=== PATIENT | male | born 1935 | race Caucasian/White ===

== ENCOUNTER 2022-01-29 10:53 | Outpatient (CLI) | payer MEDICARE, SELFPAY ==
--- NOTE | 2022-01-29 11:11 | XR_ITS ---
WS: [id number] XR chest 2V* [id number] REASON FOR EXAM: cough FINDINGS: Moderate tortuosity and ectasia of thoracic aorta. Normal heart size. Calcified granulomatous disease in both hemithoraces. No acute pulmonary parenchymal or pleural abnormality. Mild thoracic scoliosis convex left. Bridging osteophyte formation in the mid and lower thoracic spin e. XR/XR chest 2V* [id number] IMPRESSION: No acute chest abnormality.
== END 2022-01-29 10:54 | disposition home or self-care (01) ==
PROVIDERS: PCP Clinical Nurse Specialist Adult Health; Visit Provider Clinical Nurse Specialist Adult Health
DX: R05.9 Cough, unspecified (principal)
CPT/HCPCS: 71046

== ENCOUNTER → 2022-06-25 14:06 | Outpatient (BNVA) | payer BC, SELFPAY | PROVIDERS: PCP Clinical Nurse Specialist Adult Health; Visit Provider Clinical Nurse Specialist Adult Health | DX: R10.32 Left lower quadrant pain (principal) | CPT/HCPCS: 81000; 87086 ==

== ENCOUNTER 2024-12-02 11:30 | Inpatient (IN) | payer MEDICARE, SELFPAY ==
[2024-12-02] VITALS (13 sets, daily range): BP systolic 104–198; BP diastolic 49–98; PULSE 45–62; RESP 14–16; TEMP 36.6–37.1; O2SAT 94–99; BMI 22.9
--- NOTE | 2024-12-02 11:40 | ECG_ITS ---
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 Measurements Intervals [place] Rate: 60 P: 46 FL: 165 QRS: 14 QRSD: 87 T: 57 QT: 390 QTc: 390 Interpretive Statements SINUS RHYTHM POSSIBLE LEFT ATRIAL ENLARGEMENT [-0.1mV P-WAVE IN V1/V2] Compared to ECG 05/06/2014 06:11:51 Sinus bradycardia no longer present Electronically Signed On 12-02-2024 22:49:27 CDT by Candice Rosales M.D. [id number] [id number]
--- NOTE | 2024-12-02 11:56 | XR_ITS ---
WS: [id number] XR chest 1V portable [id number] REASON FOR EXAM: cp FINDINGS: Chest is unchanged compared to 01/29/2022. Calcification of the aortic arch. Moderate tortuosity and ectasia of the thoracic aorta. Normal heart size. Calcified granulomatous disease bilaterally. No acute pulmonary parenchymal or pleural abnormality. Significant degenerative spondylosis in the thoracic spine. XR/XR chest 1V portable [id number] IMPRESSION: Stable chest without acute abnormality.
[2024-12-02 12:06] LABS: Hematocrit 47.2 % (37-53); Hemoglobin 15.70 g/dL (11.27-16.99); Mean Corpuscular HGB Conc 33.3 g/dL (30-55); Mean Corpuscular Hemoglobin 31.2 pg (27-33); Mean Corpuscular Volume 93.8 fl (82-101); Nucleated Red Blood Cells % 0 %; Platelet Count 323 10^3/cmm (157-399); Red Blood Count 5.03 10^6/uL (3.85-5.65); White Blood Count 7.74 10^3/uL (3.29-11.43)
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
[2024-12-02 12:19] LABS: INR 0.89 (0.8-1.2); Prothrombin Time 12.70 SECONDS (12.1-14.9)
[2024-12-02 12:26] LABS: Alanine Aminotransferase 21 U/L (0-41); Albumin Level 4.4 g/dL (3.5-5.2); Alkaline Phosphatase 86 U/L (40-130); Anion Gap 16.3 (5-19); Blood Urea Nitrogen 11 mg/dL (8-23); Calcium 9.3 mg/dL (8.5-10.5); Carbon Dioxide 24 mmol/L (22-29); Creatinine Clr Calc Pharmacy 53.6110; Globulin 2.7 g/dL (1.3-4.6); Glucose 104 mg/dL (65-115); Lipase 49 U/L (13-60); Potassium 4.3 mmol/L (3.5-5.1); Total Protein 7.1 g/dL (6.6-8.7)
[2024-12-02 12:35] LABS: Osmolality Calculated 276 mOsm/kg (285-295); Sodium 133 mmol/L (136-145); Troponin(5th) Baseline 1112 ng/L (0-15)
[2024-12-02 12:36] LABS: Aspartate Amino Transferase 63 U/L (0-40); Chloride 97 mmol/L (98-107)
--- NOTE | 2024-12-02 12:45 | ECG_ITS ---
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 Measurements Intervals [place] Rate: 54 P: 57 [place]: 178 QRS: 3 QRSD: 96 T: 28 QT: 425 QTc: 403 Interpretive Statements SINUS BRADYCARDIA Compared to ECG 12/02/2024 12:39:56 No significant changes Electronically Signed On 12-02-2024 22:52:49 CDT by Candice Rosales M.D. [email or web address] [id number]
[2024-12-02] MEDS: heparin 5,000 unit/mL INJ 1 mL 4000 UNIT IVP (13:02)
--- NOTE | 2024-12-02 13:51 | USCV_ITS ---
Marcio Calvo Age: 88 Gender: M : 1935 Exam Date: 12/02/2024 14:27 Ordering Phys: Ping Sanders NP Technologist: Exam [place] [facility] [place]ication: chest pain sob BP: 173 / 98 HR: 50 Rhythm: Sinus Technical Quality: Adequate MEASUREMENTS (Male / Female) Normal Values 2D ECHO LV Diastolic Diameter PLAX 4.0 cm 4.2 - 5.9 / 3.9 - 5.3 cm IVS Diastolic Thickness 1.1 cm 0.6 - 1.0 / 0.6 - 0.9 cm IVS Systolic Thickness 1.5 cm LVPW Diastolic Thickness 1.2 cm 0.6 - 1.0 / 0.6 - 0.9 cm LVPW Systolic Thickness 1.5 cm LVOT Diameter 2.0 cm LV Ejection Fraction 2D Teich 67.4 % LV Ejection Fraction MOD 4C 64.5 % LV Ejection Fraction MOD 2C 59.2 % LV Ejection Fraction 2C AL 58.7 % LA Diameter 3.7 cm RA Systolic Volume 4C AL 38.3 ml RA Systolic Volume 4C MOD 37.1 ml Aorta at Sinotubular Diameter 3.3 cm M-MODE LA Ao Ratio MM 1.1 AV Cusp Separation MM 2.5 cm DOPPLER AV Peak Velocity 191.2 cm/s LVOT Peak Velocity 97.0 cm/s AV Area Cont Eq vti 2.4 cm squared AV Area Cont Eq pk 1.7 cm squared MV Peak Velocity 120.0 cm/s MV Area PHT 2.2 cm squared Mitral E to A Ratio 0.6 TV Peak Velocity 139.5 cm/s TR Peak Velocity 155.0 cm/s TR Peak Gradient 9.6 mmHg TV Peak E Velocity 79.0 cm/s PV Peak Velocity 127.0 cm/s FINDINGS Left Ventricle Normal left ventricular size, systolic function and wall thickness, with no regional wall motion abnormalities. Left ventricular ejection fraction is estimated at 60 %. Grade I/IV diastolic dysfunction (abnormal relaxation filling pattern), normal to mildly elevated filling pressures. Right Ventricle The right ventricle is normal in size and function. Right Atrium The right atrium is normal in size. Left Atrium The left atrium is normal in size. Mitral Valve Structurally normal mitral valve without significant stenosis or prolapse. There is no mitral regurgitation. Aortic Valve Moderate aortic valve calcification. Gcot-[id number]-dvsomfyp aortic valve regurgitation. Mild aortic valve stenosis, mean gradient 3.7 mmHg, TONYA 2.4 cm squared. Tricuspid Valve Structurally normal tricuspid valve without significant stenosis or regurgitation. Pulmonary artery systolic pressure is normal. Pulmonic Valve Structurally normal pulmonic valve without significant stenosis. There is no pulmonic regurgitation. Pericardium Normal pericardium without effusion. Aorta Normal ascending aorta dimension. IVC The inferior vena cava appears normal. CONCLUSIONS Normal left ventricular size, systolic function and wall thickness, with no regional wall motion abnormalities. Left ventricular ejection fraction is estimated at 60 %. Grade I/IV diastolic dysfunction (abnormal relaxation filling pattern), normal to mildly elevated filling pressures. Moderate aortic valve calcification. Phqo-kh-yutttubd aortic valve regurgitation. Mild aortic valve stenosis, mean gradient 3.7 mmHg, TONYA 2.4 cm squared. There is no pericardial effusion. Right atrial pressure is around 5 mm of mercury. Red Walsh MD (Electronically Signed) Final Date: 02 December 2024 18:28 S
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
[2024-12-02 14:18] LABS: Partial Thromboplastin Time 24.2 SECONDS (23.9-36.7)
[2024-12-02] MEDS: heparin drip 25,000 UNIT/500 ML PREMIX 20 UNIT IV (14:25)
[2024-12-02] MEDS: nitroglycerin drip 50 MG/250 ML PREMIX IV (14:26)
[2024-12-02 14:32] LABS: Troponin 5 2HR Delta -221.8 ABS# (0-10)
[2024-12-02 14:33] LABS: Troponin 5 2HR 890.2 ng/L (0-15)
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
--- NOTE | 2024-12-02 17:56 | ECG_ITS ---
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 Measurements Intervals [place] Rate: 53 P: 78 MT: 188 QRS: 15 QRSD: 88 T: 51 QT: 434 QTc: 411 Interpretive Statements SINUS BRADYCARDIA Compared to ECG 12/02/2024 11:40:24 Sinus rhythm no longer present Electronically Signed On 12-02-2024 22:52:52 CDT by Candice Rosales M.D. [email or web address]
[2024-12-02 18:38] LABS: Troponin 5 6HR 1006 ng/L (0-15); Troponin 5 6HR Delta -106 ng/L (0-12)
[2024-12-02 21:42] LABS: INR 1.00 (0.8-1.2); Prothrombin Time 13.90 SECONDS (12.1-14.9)
[2024-12-02 21:53] LABS: Partial Thromboplastin Time 114.0 SECONDS (23.9-36.7)
[2024-12-03] VITALS (22 sets, daily range): BP systolic 125–159; BP diastolic 59–88; PULSE 42–69; RESP 12–22; TEMP 36.6–36.9; O2SAT 93–99
[2024-12-03 02:32] LABS: Hematocrit 39.4 % (37-53); Hemoglobin 13.10 g/dL (11.27-16.99); Mean Corpuscular HGB Conc 33.2 g/dL (30-55); Mean Corpuscular Hemoglobin 31.0 pg (27-33); Mean Corpuscular Volume 93.1 fl (82-101); Nucleated Red Blood Cells % 0 %; Platelet Count 270 10^3/cmm (157-399); Red Blood Count 4.23 10^6/uL (3.85-5.65); White Blood Count 6.17 10^3/uL (3.29-11.43)
[2024-12-03 02:49] LABS: Anion Gap 12.1 (5-19); Blood Urea Nitrogen 11 mg/dL (8-23); Calcium 8.5 mg/dL (8.5-10.5); Carbon Dioxide 25 mmol/L (22-29); Chloride 103 mmol/L (98-107); Creatinine Clr Calc Pharmacy 53.1301; Glucose 103 mg/dL (65-115); Osmolality Calculated 282 mOsm/kg (285-295); Potassium 4.1 mmol/L (3.5-5.1); Sodium 136 mmol/L (136-145)
[2024-12-03 02:54] LABS: Partial Thromboplastin Time 96.9 SECONDS (23.9-36.7)
[2024-12-03 03:12] LABS: Estmated Average Glucose 111; Hemoglobin A1C 5.5 % (4.0-6.0)
[2024-12-03 03:19] LABS: Cholesterol 168 mg/dL (0-200); HDL Cholesterol 51 mg/dL (60-100); Magnesium 1.7 mg/dL (1.7-2.3); Thyroid Stimulating Hormone 2.55 uIU/mL (0.27-4.20); Triglycerides 81 mg/dL (0-150)
--- NOTE | 2024-12-03 06:39 | XACV_ITS ---
Exam Room: [facility] Ht: 178 cm Wt: 68 kg BSA: 1.84 m2 Gender: Male : 1935 Any Known Allergies: No known allergies Exam Priority: Routine Indication(s): - Non-ST elevation DC Procedure(s): Procedure Description: Diagnostic procedure Procedure Description: PCI procedure Procedure Description: Drug Eluting Coronary Stent Procedure Description: PTCA Procedure Description: Miscellaneous Procedure Description: ACT Procedure Description: Coronary Angiography Diagnostic Cath Status: Urgent Diagnostic Findings * Left Main has no disease. * Right Coronary Artery has no disease. It is a nondominant vessel. * Proximal Left Anterior Descending to Mid Left Anterior Descending: minimal 30% stenosis, NILDA: 3 flow. * Mid Circumflex: significant 80% stenosis, NILDA: 3 flow. * First Obtuse Marginal Branch Segment: severe 90% stenosis, NILDA: 3 flow. It is a culprit lesion which is ulcerated and ruptured plaque. * Coronary angiography shows left dominance. PCI Status: Urgent Interventional Findings * Mid Circumflex: 80% stenosis treated with a AB TREK 3.00X12 RX BALLOON, CYNDIE Brock CHAPARRO 3.5X12 JACKIE, and MDT DESI EUPHORA RX [id number] BALLOON. 0% residual stenosis, NILDA: 3 flow. * First Obtuse Marginal Branch Segment: 90% stenosis treated with a AB TREK 3.00X12 RX BALLOON, MDRosetta Brock CHAPARRO 3.0X15 JACKIE, and MDT DESI EUPHVALERIA RX [id number] BALLOON. 0% residual stenosis, NILDA: 3 flow. Conclusions 1. There is significant coronary artery disease with two vessel disease. 2. Mid Circumflex was treated with a Balloon, Drug Eluting Stent, and Balloon. 3. First Obtuse Marginal Branch Segment was treated with a Balloon, Drug Eluting Stent, and Balloon. 4. Please note that patient is a Jewish, patient was not cooperative on the table as he was moving around plus he has a torturous subclavian vessel we therefore has not performed left ventriculography.. Recommendations * 1-Return to inpatient for close monitoring and routine cath care 2-Risk factor modification for secondary prevention 3-Statin and aspirin 81 mg life-long, if tolerated 4-Patient was pre-loaded with 600 mg of Plavix, continue Plavix 75mg p.o. daily for at least one year. We will assess at the end of one year again to continue if further or not 5-Continue optimal medical management 6-Follow up with Dr. Walsh in four weeks and your primary care in 10 days. Diagnostic RX Recommendation: PCI w/o planned CABG Pressures Phase:Rest AO : / ( 0 ) @ 8:24:00 AM 122 / 67 ( 88 ) @ 8:30:00 AM 128 / 54 ( 80 ) @ 8:38:00 AM 107 / 72 ( 90 ) @ 8:43:00 AM 105 / 59 ( 82 ) @ 8:44:00 AM 129 / 66 ( 93 ) @ 8:51:00 AM 123 / 82 ( 101 ) @ 8:55:00 AM 105 / 100 ( 102 ) @ 9:00:00 AM Clinical Evaluation EBL: 5mL-10mL Procedural Details Procedure Consent Obtained. Admit Source: In Patient. Current Diagnosis : NSTEMI. Pre-Procedure Time Out. Identified patient by full name and date of as verbalized by the patient/guarantor. Does the consent match the physician's order: Yes. Accurate & Complete Informed Consent: Yes. Inpatient/Outpatient History & Physical on Chart: Yes. If H&P is completed, is and addenduem needed: No; If yes, is the addendum complete: N/A. Visualize and Verify Site with Patient/Guarantor: N/A. Relevant Radiology Images available: N/A. The risks, benefits, and alternatives of sedation and/or procedure were discussed by physician. The patient agrees to continue. Procedure started. [facility] Clinical Fraility Score: 4: Vulnerable. [employer] Chief Indications: Other. Chest Pain Symptom Assessment: Typical Angina Symptoms. Cardiovascular Instability: No. Correct patient, site and procedure confirmed by cath team. Current diagnosis: NSTEMI. PERRLA. Strong, equal hand maintenance manager bilaterally. Lungs clear x 5 lobes. IV Site on Arrival: 20 gauge in the right forearm. IV Fluids: 0.9% NaCl at KVO. 100 mL infused prior to bolt labeler. Pre Procedural Pulses: bilateral posterior tibial was Doppled. Pre Procedural Pulses: bilateral dorsalis pedis was Doppled. Pre Procedural Pulses: bilateral radial was 3+. Oxygen started at 3liters/min via nasal canula. right groin was prepped with chloroprep then draped in the usual sterile fashion. right radial was prepped with chloroprep then draped in the usual sterile fashion. Baseline sample Acquired. HR: 55 BPM. Physician notified. Physician arrived. Patient's family unavailable. Physician scrubbed in. Immediate Pre-Procedure Time Out. Correct Patient: Yes; Correct Procedure: Yes; Correct Site: Yes; Correct Patient Position: Yes; Correct Supplies: Yes; Dried Flammable Prep: Yes; Blood Products Available: N/A;. Baseline sample Acquired. HR: 57 BPM. Lidocaine 1% infiltrated to the right radial. Arterial access obtained. Heparin gtt off just prior to arrival in bolt labeler. ACT drawn. Results 140 seconds. Therapeutic limits - pre-heparin administration 90-150 seconds and monitoring heparin during a vascular procedure >250 seconds. A 5 moldovan TIG catheter in over wire. Exchange wire removed. Glidewire inserted. Catheter advanced into position. Glidewire out. Multiple views taken of left coronary artery. Catheter redirected to the RCA. Multiple views taken of right coronary artery. Catheter removed over the wire. 6 moldovan XB 3.5 guide catheter was inserted over the wire. Unable to seat guide in the lcs. Guide catheter out over the exchange wire. 6 moldovan XB 3 guide catheter was inserted over the wire. Guide seated in the LCS. Runthrough guidewire was advanced through the guide catheter to lesion in the OM. Inflation number : 1 A AB TREK 3.00X12 RX BALLOON was prepped and advanced across the 1st Ob Cony , then inflated to 8 KEVIN for 0:10 seconds. Guidewire advanced across lesion. Inflation number: 2 The AB TREK 3.00X12 RX BALLOON was reinflated across the 1st Ob Cony, to 12 KEVIN for 0:08 seconds. Balloon out. Results checked. Inflation Number : 3 A MDT R CHAPARRO 3.0X15 JACKIE -Lot Number# [id number] EXP 05/29/2027 was prepped and advanced across the 1st Ob Cony. The stent was deployed at 12 KEVIN for 0:14 seconds. Results checked. Stent balloon out over wire. Inflation number : 4 A MDT NC EUPHORA RX [id number] BALLOON was prepped and advanced across the 1st Ob Cony , then inflated to 12 KEVIN for 0:14 seconds. Inflation number: 5 The MDT NC EUPHORA RX 3.02E33MW BALLOON was reinflated across the 1st Ob Cony, to 12 KEVIN for 0:11 seconds. ACT drawn. Results Out of range HI seconds. Therapeutic limits - pre-heparin administration 90-150 seconds and monitoring heparin during a vascular procedure >250 seconds. Balloon out. Results checked. Wire redirected down the circumflex. Inflation number: 1 The AB TREK 3.00X12 RX BALLOON was reinflated across the Mid CX, to 12 KEVIN for 0:09 seconds. Balloon out. Results checked. Inflation Number : 2 A MDT R CHAPARRO 3.5X12 JACKIE -Lot Number# [id number] EXP 06/28/2027 was prepped and advanced across the Mid CX. The stent was deployed at 12 KEVIN for 0:15 seconds. Stent balloon out over wire. Results checked. Inflation number: 3 The MDT NC EUPHORA RX 3.81A25IJ BALLOON was reinflated across the Mid CX, to 16 KEVIN for 0:15 seconds. Results checked. Guide became disenguaged. Wire and balloon came out with guide disenguament. Guide seated in the LCS. ACT drawn. Results 277 seconds. Therapeutic limits - pre-heparin administration 90-150 seconds and monitoring heparin during a vascular procedure >250 seconds. Results checked. Physician review of films. [id number]. Physician scrubbed out. Post-op diagnosis: NONSTEMI; MID CIRC AND OM STENOSIS; 2 JACKIE. Complications: None. A TR Band was successful obtaining hemostatsis at the Right Radial artery insertion site. TR band placed. Hemostasis obtained. Post Procedure: Pulses reassessed and unchanged. PERRLA. Strong, equal hand maintenance manager bilaterally. No VTE prophylaxis required. Medication's Wasted: Lidocaine 1% = 18 ml , Versed = 1 mg , Nitro = 49.8 mg , Fentanyl = 50 mcg. Total IV fluids: 65 mL. Fluoro: 13:08. Contrast type used: Omnipaque 300 mg/mL, 150 mL bottle. Estimated blood loss: 5mL-10mL. Responsiveness - Normal response to verbal stimuli; alert and oriented, PERRLA. Airway - Unaffected, no intervention required; spontaneous ventilation. Circulation: W/N/L, pulses unchanged. Nausea/Vomiting: No. Procedure completed. Patient transferred by bed to 1st floor. Vital chart was stopped. Access Site Site: Right Radial artery Sheath Size: 6 Fr Hemostasis Method: TR Band Hemostasis Success: Successful Procedure Medications Start: 7:14 AM Stop: 7:14 AM Medication: Versed 1 mg and Fentanyl 25 mcg Amount: 1 Route: I.V. Start: 7:20 AM Stop: 7:20 AM Medication: Nitrogylcerin Amount: 200 mcg Route: I.A. Start: 7:28 AM Stop: 7:28 AM Medication: Heparin Amount: 6000 units Route: I.V. Start: 7:38 AM Stop: 7:38 AM Medication: Versed Amount: 1 mg Route: I.V. Start: 7:49 AM Stop: 7:49 AM Medication: Fentanyl Amount: 25 mcg Route: I.V. Start: 7:52 AM Stop: 7:52 AM Medication: Versed Amount: 1 mg Route: I.V. I, the attending physician, have reviewed and verified all procedure medications. Yes, all medications given per verbal order History/Risk Factors Hypertension: Yes Dyslipidemia: No Peripheral Arterial Disease (PAD): No Myocardial Infarction (DC): No Obesity: No Renal Disease: No Tobacco Use: Never Prior Interventions PCI: No CABG: No Valve Surgery: No Report Signatures Finalized by Red Walsh MD on 12/03/2024 08:23 AM
--- NOTE | 2024-12-03 07:10 | W.PM.OPSUD ---
Surgery/Procedure H&P Update DATE OF PROCEDURE: December 03, 2024 DATE H&P PERFORMED: 12/02/24 H&P UPDATE INFORMATION: I have reviewed H&P completed within last 30 days, I have examined patient prior to procedure and No changes to prior documentation PREOP DIAGNOSIS: [id number] myocardial infarction PLANNED PROCEDURE: Operation Date: 12/03/24 07:00 Proposed Procedures p Cardiac Catheterization(Left) - Red Walsh MD PATIENT REASSESSED PRIOR TO SEDATION, WITH NO CHANGE NOTED: Yes PHYSICAL EXAM: alert, oriented x 3, clear to auscultation bilaterally, regular rate & rhythm and operative site marked AIRWAY EVAL/ANESTHESIA PLAN: ASA II, Risks, benefits & alternatives of sedation and/or procedure discussed and Patient agrees to continue as planned ADDITIONAL INFORMATION: All risk-benefit and alternative for the procedure has been explained to the patient. Patient understand 4 to 5% risk of stroke major bleed, patient understand 6 to 10% risk of contrast-induced nephropathy, minor bleeding bruising infection hematoma pseudoaneurysm retroperitoneal bleed urgent emergent vascular or bypass surgery. Patient clearly understood and would like to proceed with it.
--- NOTE | 2024-12-03 07:10 | PC.NURSE ---
Patient taken to blood bank laboratory technician via bed. Daughter at bedside.
--- NOTE | 2024-12-03 07:14 | PC.NURSE ---
Daughter brought in Ipad for patient along with chargers to phone and Ipad. Daughter took wallet home.
--- NOTE | 2024-12-03 08:23 | PC.NURSE ---
Patient received from cath via bed s/p [facility] with PCI and TR band in place to right wrist. No s/s of bleeding or hematoma formation observed. Patient is sedated at this time. Daughter at bedside. Instruction provided regarding site care with restrictions to daughter. She verbalized and demonstrated understanding.
--- NOTE | 2024-12-03 10:36 | P.PN_ITS ---
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 Doing well overall. Currently off of his nitro drip. He is still recovering from sedation. Blood pressures little bit on the higher side 152/72. He complained of mild chest pain post procedure. We are giving him nitro. EKG showed no acute ST or T wave abnormalities. Vitals/I&O/Wt Last Vital Signs Temp 98.5 F 12/03/24 04:00 Pulse 67 12/03/24 10:34 Resp 21 H 12/03/24 10:34 BP 152/72 12/03/24 10:34 Pulse Ox 96 12/03/24 10:34 O2 Del Method Nasal Cannula 12/03/24 08: O2 Flow Rate 2 12/03/24 08:25 12/02/24 12/03/24 12/03/24 22:59 06:59 14:59 Intake Total 408.375 / 408.375 98.133 / 506.508 207.933 / 207.933 Output Total 400 / 400 800 / 1200 400 / 400 Balance 8.375 / 8.375 -701.867 / -693.492 -192.067 / -192.067 Weight last 48 hrs Weight 151 lb Weight 156 lb 6.4 oz Weight 160 lb Physical Exam 2 Narrative: General: No apparent distress HENMT: normoceophalic Neuro: PERRL, pupil size normal, charm filter operator helper strength equal bilaterally, lower extremities strength equal, no s/s of stroke, no slurred speech, no facial drooping Muskuloskeletal: Full ROM Respiratory: Normal respiratory effort, clear to auscultation bilaterally throughout all lung stewart, no use of accessory muscles Cardio: No JVD, regular rate, regular rhythm, S1 S2 normal, no murmurs, peripheral pulses 2+ radial palpated bilaterally Extremities: Full ROM, normal, normal capillary refill, no cyanosis or edema Neuro: Alert and oriented x4 Psych: Affect normal, mental status grossly normal Skin: No rashes or lesions noted, no wounds Data 12/03/24 02:20 12/03/24 02:20 A&P Assessment and plan 1. Non-ST elevation HI (NSTEMI): 2. Chest pain, unspecified type: 3. Essential hypertension: Plan: Patient s/p stent to the circ and OM. Nitro resolved chest pain. Will start amlodipine 5 mg tonight. Monitor for worseing s/s of chest discomfort. Continue aspirin and plavix as well as statin. Possibly go home tomorrow if patient does well. PDMP PDMP Reviewed: Not Reviewed Attestations 2 Medical Necessity Statement*: Deferred to primary. Coding Level of Care Code Acute Code for g Fwd Diagnoses Non-ST elevation HI (NSTEMI) I21.4 Chest pain, unspecified type R07.9 Chest pain type: unspecified Essential hypertension I10
--- NOTE | 2024-12-03 10:42 | ECG_ITS ---
[facility]: [facility] Pat Name: Marcio Calvo Department: Room: 103 Gender: Male Wiper Blender: : 1935 Requested By: Red Walsh Order Number: [id number] Luan MD: Candice Rosales M.D. Measurements Intervals [place] Rate: 67 P: 43 ND: 168 QRS: -9 QRSD: 87 T: 88 QT: 411 QTc: 434 Interpretive Statements SINUS RHYTHM NONSPECIFIC ST & T-WAVE ABNORMALITY Compared to ECG 12/02/2024 12:45:46 T-wave abnormality now present Sinus bradycardia no longer present Electronically Signed On 12-04-2024 13:52:44 CDT by Candice Rosales M.D. [email or web address]
--- NOTE | 2024-12-03 10:56 | PC.NURSE ---
Patient c/o chest pain 10/06. Dr Walsh was into see patient and is aware. One sublingual nitro given with relief. EKG obtained and transmitted. Ping Sanders NP is in at this time to see patient. Education provided regarding post LHC expectations. Patient and daughter both verbalized complete understanding.
--- NOTE | 2024-12-03 11:00 | PC.NURSE ---
Losartan discontinued per Ping Sanders NP.
--- NOTE | 2024-12-03 11:30 | PC.NURSE ---
TR band off at this time. Initiated air removal from TR Band at 1000. Removed 1-2ml of air every 15-20min until all air removed. Band off at this time. No s/s of bleeding or hematoma formation observed. Patient has slight flesh displacement proximal to the TR band area. Area is soft and without pain. Instructed patient on site care with restrictions. Patient and family verbalized complete understanding.
--- NOTE | 2024-12-03 19:55 | P.PN_ITS ---
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 Doing well overall. No acute concerns endorsed by the patient. Vitals/I&O/Wt Last Vital Signs Temp 97.8 F 12/03/24 19:32 Pulse 68 12/03/24 19:32 Resp 22 H 12/03/24 19:32 BP 147/69 12/03/24 19:32 Pulse Ox 93 12/03/24 19:32 O2 Del Method Room Air 12/03/24 19:32 O2 Flow Rate 2 12/03/24 08:25 12/03/24 12/03/24 12/03/24 06:59 14:59 22:59 Intake Total 98.133 / 506.508 447.933 / 922.758 3692 / 1567.933 Output Total 800 / 1200 950 / 950 Balance -701.867 / -693.492 -502.067 / -436.702 9930 / 617.933 Weight last 48 hrs Weight 68.492 kg Weight 70.942 kg Weight 72.575 kg Physical Exam 2 Narrative: General: Alert oriented x3, patient seen lying comfortably on the bed without any distress HEENT: Normocephalic, atraumatic, EOMI, breathing normally at room air Cardio: Regular rate rhythm, normal S1-S2, no murmurs rubs gallops, JVD normal Respiratory: Good bilateral air entry, no wheezes no rhonchi appreciated GI: Abdomen soft, nontender, nondistended, normoactive bowel sounds present all 4 quadrants, Neuro: Cranial nerves II to XII intact, strength 5/5, sensation 5/5, no gross neurological deficit Behavior: Appropriate and cooperative Extremities: Right radial access was approach for PCI and currently covered with pressure dressing Skin: Visible skin intact, no rashes Data 12/03/24 02:20 12/03/24 02:20 A&P Assessment and plan 1. Non-ST elevation [place] (NSTEMI): 2. Essential hypertension: Plan: An 88-year-old gentleman with past medical history of hypertension presented with chest pain and found to have markedly increased troponins around 1112. And admitted as a case of NSTEMI. plan: - Patient s/p PCI stenting to circumflex and OM. -As per cardiology to start amlodipine 5 mg tonight - Continue aspirin and Plavix with statins - Monitor for any complication post PCI and stable for discharge tomorrow - Telemetry monitoring Patient has been counseled about his acute current condition and illness, he understands the plan without any language barrier or concerns inquiries has been addressed I have discussed patient's end-of-life/goals of life and patient preferred to be DNR The patient is also a [employer] therefore no blood transfusion to be given to patient PDMP PDMP Reviewed: Not Reviewed Attestations 2 Medical Necessity Statement*: The patient will stay overnight for further optimization Time Spent in Patient Care: 45 minutes Coding Level of Care Code 39559 Diagnoses Non-ST elevation [place] (NSTEMI) I21.4 Essential hypertension I10
[2024-12-04] VITALS: BP 102/55; PULSE 81; RESP 22; TEMP 36.6; O2SAT 96
[2024-12-04 03:57] VITALS: BP 111/60; PULSE 69; RESP 11; TEMP 36.8; O2SAT 97
[2024-12-04 05:20] LABS: Hematocrit 41.2 % (37-53); Hemoglobin 13.90 g/dL (11.27-16.99); Mean Corpuscular HGB Conc 33.7 g/dL (30-55); Mean Corpuscular Hemoglobin 31.9 pg (27-33); Mean Corpuscular Volume 94.5 fl (82-101); Nucleated Red Blood Cells % 0 %; Platelet Count 282 10^3/cmm (157-399); Red Blood Count 4.36 10^6/uL (3.85-5.65); White Blood Count 6.89 10^3/uL (3.29-11.43)
[2024-12-04 05:39] LABS: Anion Gap 11.9 (5-19); Blood Urea Nitrogen 9 mg/dL (8-23); Calcium 8.7 mg/dL (8.5-10.5); Carbon Dioxide 24 mmol/L (22-29); Chloride 101 mmol/L (98-107); Creatinine Clr Calc Pharmacy 52.2618; Glucose 101 mg/dL (65-115); Osmolality Calculated 275 mOsm/kg (285-295); Potassium 3.9 mmol/L (3.5-5.1); Sodium 133 mmol/L (136-145)
[2024-12-04 07:58] VITALS: BP 114/55; PULSE 55; RESP 15; TEMP 36.7; O2SAT 97
--- NOTE | 2024-12-04 09:04 | PM.DCS ---
Discharge Providers Date of Admission: 12/02/24 13:02 Date of Discharge: December 04, 2024 Attending Provider at Admission: Matt Dan MD Attending Provider at Discharge: Matt Dan MD Primary Care Provider: Clem Taylor MD Diagnoses at Discharge Discharge Diagnosis 1. Non-ST elevation MD (NSTEMI): 2. Essential hypertension: Reason for Visit Reason for Visit: chest pain, high bp Brief History: Marcio Calvo Jr is a 88 year old male with no previous cardiac history per patient who came into the ER today due to high blood pressure and chest pain. He was in his usual state of health at home when he felt chest heaviness which he did not encounter before with very mild dizziness, checked his blood pressure and was high. He called his family doctor which she was expecting to see on 17 December to book an earlier appointment but he was informed to come to emergency room since his chest pain was concerning. He states that his blood pressure had been running in the 170s and he had been having trouble with this. He has been healthy throughout his life and did not report such chest pain episodes in the past. The patient is also [employer]. Hospital Course Hospital Course During his hospital stay the patient has marked increase in troponins around 1000 admitted as a case of NSTEMI. S/p PCI and stenting to circumflex and OM. Patient started on aspirin and Plavix and statins. Cardiology reviewed Case discussed and also started on amlodipine 5 mg. Patient stability established chart reviewed and discussed with the cardiology for discharge. Medication reconciled with cardiology on board/confirmation Physical Exam Narrative: General: Alert oriented x3, patient seen lying comfortably on the bed without any distress HEENT: Normocephalic, atraumatic, EOMI, breathing normally at room air Cardio: Regular rate rhythm, normal S1-S2, no murmurs rubs gallops, JVD normal Respiratory: Good bilateral air entry, no wheezes no rhonchi appreciated GI: Abdomen soft, nontender, nondistended, normoactive bowel sounds present all 4 quadrants, Neuro: Cranial nerves II to XII intact, strength 5/5, sensation 5/5, no gross neurological deficit Behavior: Appropriate and cooperative Extremities: Right radial access was approach for PCI and currently covered with pressure dressing and no hematoma with good perfusion to the peripheries Skin: Visible skin intact, no rashes Discharge Data Studies Completed and Pending Completed Studies During Hospitalization Category Date Time Status DECISION SUPPORT MANAGER request for service Routine Exams 12/03/24 06:39 Completed XR chest 1V portable [id number] Stat Exams 12/02/24 11:56 Completed CV. echo complete* [id number] Stat Ultrasound 12/02/24 13:51 Completed Radiology Impressions Chest X-Ray 12/02/24 11:56 IMPRESSION: Stable chest without acute abnormality. Laboratory Results WBC 6.89 10^3/uL (3.29-11.43) 12/04/24 04:54 RBC 4.36 10^6/uL (3.85-5.65) 12/04/24 04:54 Hgb 13.90 g/dL (11.27-16.99) 12/04/24 04:54 Hct 41.2 % (37-53) 12/04/24 04:54 MCV 94.5 fl (82-101) 12/04/24 04:54 MCH 31.9 pg (27-33) 12/04/24 04:54 MCHC 33.7 g/dL (30-55) 12/04/24 04:54 RDW 12.9 % (12.1-15.1) 12/04/24 04:54 Plt Count 282 10^3/cmm (157-399) 12/04/24 04:54 MPV 9.0 fL (7.4-10.4) 12/04/24 04:54 Neut % (Auto) 65.7 % 12/04/24 04:54 Lymph % (Auto) 22.1 % 12/04/24 04:54 Jerauld % (Auto) 9.9 % 12/04/24 04:54 Eos % (Auto) 1.7 % 12/04/24 04:54 Baso % (Auto) 0.3 % 12/04/24 04:54 Neut # (Auto) 4.53 10^3/uL (1.8-7.7) 12/04/24 04:54 Lymph # (Auto) 1.5 10^3/uL (0.8-4.8) 12/04/24 04:54 Jerauld # (Auto) 0.7 10^3/uL (0.2-0.9) 12/04/24 04:54 Eos # (Auto) 0.1 10^3/uL (0.0-0.8) 12/04/24 04:54 Baso # (Auto) 0.0 10^3/uL (0.0-0.1) 12/04/24 04:54 Nucleated RBC % (auto) 0 % 12/04/24 04:54 Nucleated RBCs # 0.0 /100WBC 12/04/24 04:54 PT 13.90 SECONDS (12.1-14.9) 12/02/24 20:53 INR 1.00 (0.8-1.2) 12/02/24 20:53 APTT 96.9 SECONDS (23.9-36.7) H 12/03/24 02:20 Sodium 133 mmol/L (136-145) L 12/04/24 04:54 Potassium 3.9 mmol/L (3.5-5.1) 12/04/24 04:54 Chloride 101 mmol/L (98-107) 12/04/24 04:54 Carbon Dioxide 24 mmol/L (22-29) 12/04/24 04:54 Anion Gap 11.9 (5-19) 12/04/24 04:54 BUN 9 mg/dL (8-23) 12/04/24 04:54 Creatinine 1.0 mg/dL (0.7-1.2) 12/04/24 04:54 GFR Calculation Not Reportable 12/04/24 04:54 Glucose 101 mg/dL (65-115) 12/04/24 04:54 Estimat Average Glucose 111 12/03/24 02:20 Hemoglobin A1c 5.5 % (4.0-6.0) 12/03/24 02:20 Calculated Osmolality 275 mOsm/kg (285-295) L 12/04/24 04:54 Calcium 8.7 mg/dL (8.5-10.5) 12/04/24 04:54 Magnesium 1.7 mg/dL (1.7-2.3) 12/03/24 02:20 Total Bilirubin 0.6 mg/dL (0.15-1.2) 12/02/24 11:59 AST 63 U/L (0-40) H 12/02/24 11:59 ALT 21 U/L (0-41) 12/02/24 11:59 Alkaline Phosphatase 86 U/L (40-130) 12/02/24 11:59 Troponin T Baseline 1112 ng/L (0-15) H* 12/02/24 11:59 Troponin T 120 Minute 890.2 ng/L (0-15) H 12/02/24 13:48 Delta Troponin T -221.8 ABS# (0-10) L 12/02/24 13:48 Troponin T Hi Sens 6Hr 1006 ng/L (0-15) H 12/02/24 18:13 Troponin T Hi Sens 6Hr Delta -106 ng/L (0-12) L 12/02/24 18:13 Total Protein 7.1 g/dL (6.6-8.7) 12/02/24 11:59 Albumin 4.4 g/dL (3.5-5.2) 12/02/24 11:59 Globulin 2.7 g/dL (1.3-4.6) 12/02/24 11:59 Triglycerides 81 mg/dL (0-150) 12/03/24 02:20 Cholesterol 168 mg/dL (0-200) 12/03/24 02:20 LDL Cholesterol, Calc 101 mg/dL (50-129) 12/03/24 02:20 HDL Cholesterol 51 mg/dL (60-100) L 12/03/24 02:20 LDL/HDL Ratio 1.98 RATIO (0.00-3.22) 12/03/24 02:20 Cholesterol/HDL Ratio 3.29 mg/dL (1.0-5.00) 12/03/24 02:20 Lipase 49 U/L (13-60) 12/02/24 11:59 TSH 2.55 uIU/mL (0.27-4.20) 12/03/24 02:20 Vitals Last Vital Signs Temp 98.0 F 12/04/24 07:58 Pulse 55 L 12/04/24 07:58 Resp 15 12/04/24 07:58 BP 114/55 12/04/24 07:58 Pulse Ox 97 12/04/24 07:58 O2 Del Method Room Air 12/04/24 03:57 O2 Flow Rate 2 12/03/24 08:25 Discharge Plan Discharge Patient Disposition: Home Condition: Stable Prescriptions: Continued guaifenesin [Mucinex] 600 mg tablet extended release 12hr 600 mg PO BID PRN (Reason: Congestion) 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 Thank you! Clem Taylor MD [Primary Care Provider, [facility]] - 12/17/24 8:00 am Referral Note: Please keep this appointment to establish primary with Dr. Hester. Thank you! Discharge Diet: Advance as tolerated, Usual diet and Cardiac Discharge Activity: Increase activity as tolerated and Limit activity as instructed Patient Instructions: Aspirin (By mouth), Clopidogrel (By mouth) (Plavix), Cardiac Rehabilitation (DC), Chest Pain Stoplight, Opioid Safety, Post Angiogram Home Care Instructions, Post Heart Attack Stoplight, Patient Portal & Dony Instructions Discharge Attestations Time Spent in Discharge Care*: greater than 30 min Specific Discharge Activities: educating patient, educating and/or supporting family/caregiver, discussing with pcp/other providers, discussing with case finishing machine adjuster/social workers/dc planners, documenting/other paperwork and evaluating patient/reviewing data Status at Discharge: Cognitive status at discharge: cognitively intact, Behavioral status at discharge: cooperative, Functional status at discharge: independent ambulation, Overall status at discharge: patient is back to baseline Quality Metrics Clinical Quality Measures [ Acute Myocardial Infaction { Clinical Trial Participant: No; Contraindication to aspirin: None; Aspirin prescribed; Contraindication to statin: None; Statin prescribed;}] Coding Level of Care Code 56607 Diagnoses Non-ST elevation MD (NSTEMI) I21.4 Essential hypertension I10
[2024-12-04 12:00] VITALS: BP 133/75; PULSE 55; RESP 16; O2SAT 95
--- NOTE | 2024-12-04 12:30 | PC.NURSE ---
Patient discharged to home. Instruction provided regarding follow up information, new medications and site care with restrictions. patient and family all verbalized complete understanding. Patient received new medications via [id number]. Dressing to right wrist remains c,d,i without s/s of bleeding or hematoma formation noted, however, observed slight bruising to the right wrist. Patient taken by wheelchair to private vehicle. Patient denies pain or needs. No distress observed.
[2024-12-04 12:43] VITALS: BP 133/75; PULSE 55; RESP 16; O2SAT 95
--- NOTE | 2024-12-04 14:01 | P.PN_ITS ---
<Statement entered by Red Walsh MD - 12/07/24 19:52> Patient was evaluated and cared for in conjunction with an advanced practice practitioner. I personally examined the patient and reviewed the chart and all pertinent data including imaging, telemetry, and laboratory results. I discussed the patient in detail with the advanced practice practitioner. Please see their note for complete H&P testing result and agreed upon plan of care for the patient. Subjective 2 Subjective: Patient doing well today. Denies any chest pain or shortness of breath. Cath site looks good. S/P ctent to the OM and circ. Currently on asa, plavix, atorvastatin, vitals stable. He is slightly bradycardic at baseline. Vitals/I&O/Wt Last Vital Signs Temp 98.0 F 12/04/24 07:58 Pulse 55 L 12/04/24 12:43 Resp 16 12/04/24 12:43 BP 133/75 12/04/24 12:43 Pulse Ox 95 12/04/24 12:43 O2 Del Method Room Air 12/04/24 12:00 O2 Flow Rate 2 12/03/24 08:25 12/03/24 12/04/24 12/04/24 22:59 06:59 14:59 Intake Total 1320 / 1767.933 360 / 2127.933 360 / 360 Output Total 300 / 1250 Balance 1320 / 817.933 60 / 877.933 360 / 360 Weight last 48 hrs Weight 149 lb 14.4 oz Weight 151 lb Weight 156 lb 6.4 oz Physical Exam 2 Narrative: General: No apparent distress HENMT: normoceophalic Neuro: PERRL, pupil size normal, wheelchair van operator first responder strength equal bilaterally, lower extremities strength equal, no s/s of stroke, no slurred speech, no facial drooping Muskuloskeletal: Full ROM Respiratory: Normal respiratory effort, clear to auscultation bilaterally throughout all lung stewart, no use of accessory muscles Cardio: No JVD, regular rate, regular rhythm, S1 S2 normal, no murmurs, peripheral pulses 2+ radial palpated bilaterally Extremities: Full ROM, normal, normal capillary refill, no cyanosis or edema Neuro: Alert and oriented x4 Psych: Affect normal, mental status grossly normal Skin: right radial cath site clean, dry, intact w/o s/s of hematoma Data 12/04/24 04:54 12/04/24 04:54 A&P Assessment and plan 1. Non-ST elevation AL (NSTEMI): 2. Chest pain, unspecified type: 3. Essential hypertension: Plan: Patient s/p stent to the circ and OM. He has had no further chest discomfort. Cath site looks good. At this time, patient is ok to be discharged from cardiology perspective on aspirin, plavix, statin, amlodipine. EF is normal. Would avoid beta alberto at this time due to baseline bradycardia. F/U in cardiology clinic in 1 week. PDMP PDMP Reviewed: Not Reviewed Attestations 2 Medical Necessity Statement*: Deferred to primary. Coding Level of Care Code Acute Code for [facility] Diagnoses Non-ST elevation AL (NSTEMI) I21.4 Chest pain, unspecified type R07.9 Chest pain type: unspecified Essential hypertension I10
== END 2024-12-04 12:44 | disposition home or self-care (01) | DRG 322 ==
LOC: ER 13:38 → CSU 14:33
PROVIDERS: Family Medicine; Internal Medicine Cardiovascular Disease; Nurse Practitioner Family; Admitting Provider Student in an Organized Health Care Education/Training Program; Emergency Provider Emergency Medicine; PCP Family Medicine; Visit Provider Student in an Organized Health Care Education/Training Program
PROC: 027135Z Dilation of Coronary Artery, Two Arteries with Two Drug-eluting Intraluminal Devices, Percutaneous Approach (ICD-10-PCS; principal; 2024-12-03 07:00)
PROC: 027135Z Dilation of Coronary Artery, Two Arteries with Two Drug-eluting Intraluminal Devices, Percutaneous Approach (ICD-10-PCS; 2024-12-03 07:00)
DX: I21.4 Non-ST elevation (NSTEMI) myocardial infarction (principal); I10 Essential (primary) hypertension
CPT/HCPCS: 36415; 71045; 80048; 80053; 80061; 83036; 83690; 83735; 84443; 84484; 85025; 85347; 85610; 85730; 93005; 93306; 93454; 96365; 96366; 96367; 99152; 99153; 99285; C1725; C1769; C1874; C1887; C1894; C9600; C9601; J1644; J2250; J3010; J3490; J7030; J9999; Q0163; Q9967

== ENCOUNTER → 2024-12-16 13:09 | Outpatient (BNVA) | payer MEDICARE, SELFPAY | PROVIDERS: PCP Family Medicine; Visit Provider Nurse Practitioner Family | DX: I25.10 Atherosclerotic heart disease of native coronary artery without angina pectoris (principal); I10 Essential (primary) hypertension; Z79.02 Long term (current) use of antithrombotics/antiplatelets; Z79.82 Long term (current) use of aspirin; Z95.5 Presence of coronary angioplasty implant and graft; Z87.891 Personal history of nicotine dependence; I25.2 Old myocardial infarction; I21.4 Non-ST elevation (NSTEMI) myocardial infarction; R07.9 Chest pain, unspecified | CPT/HCPCS: 36415; 80053; 82550; 85025; 99213 ==

== ENCOUNTER → 2025-04-06 15:15 | Outpatient (BNVA) | payer MEDICARE, SELFPAY | PROVIDERS: PCP Family Medicine; Visit Provider Internal Medicine Cardiovascular Disease | DX: I10 Essential (primary) hypertension (principal); I25.10 Atherosclerotic heart disease of native coronary artery without angina pectoris | CPT/HCPCS: 99214 ==